=== PATIENT | male | born 2000 | race African-American/Black ===

== ENCOUNTER 2025-05-28 06:20 | Day surgery (SDC) | payer OTHER ==
[2025-05-28 07:41] LABS: #Basophils Less than 0.03 10x3/uL (0.0-0.2); #Eosinophils 0.24 10x3/uL (0.0-0.7); #Monocytes 0.62 10x3/uL (0.11-0.59); #Neutrophils 2.24 10x3/uL (1.40-6.50); %Basophils 0.2 % (0.0-1.0); %Eosinophils 4.2 % (0.0-10.0); %Lymphocytes 45.4 % (21.0-51.0); %Monocytes 10.9 % (0.0-10.0); %Neutrophils 39.1 % (42.0-75.0); Hematocrit 42.9 % (42.0-52.0); Hemoglobin 14.4 g/dL (14.0-18.0); Mean Corpuscular Hemoglobin 29.0 pg (27.0-31.0); Mean Corpuscular Volume 86.3 fL (78.0-98.0); Platelet Count 254 10x3/uL (130-400); Red Blood Cell (RBC) Count 4.97 mill/uL (4.70-6.10); White Blood Cell (WBC) Count 5.71 10x3/uL (4.8-10.8)
[2025-05-28] MEDS ORDERED: GLYCOPYRROLATE/PF 0.2 MG/ML VIAL ONE (07:51)
[2025-05-28 08:02] LABS: ALT (SGPT) 11 U/L (Less than 45); AST (SGOT) 22 U/L (11-34); Albumin 4.7 g/dL (3.1-4.5); Alkaline Phosphatase 61 U/L (40-110); Anion Gap 12 mmol/L (10-20); BUN (Urea Nitrogen) 17 mg/dL (8.9-20.6); Bacteria/HPF None Seen HPF (None Seen); Bilirubin, Total 0.7 mg/dL (0.3-1.2); CAUTI Indications for Culture Alt mental st,lethar; Calc. Creatinine Clearance 0 mL/min (70-130); Calcium 9.9 mg/dL (7.8-10.44); Carbon Dioxide 27 mmol/L (22-29); Chloride 108 mmol/L (98-107); Globulin 2.7 g/dL (2.4-3.5); Glucose 85 mg/dL (70-105); Glucose, Urine (Dipstick) Normal (Negative); Leukocyte Negative Leu/uL (Negative); Potassium 3.7 mmol/L (3.5-5.1); Protein, Urine (Dipstick) 10 mg/dL (Neg-Trace); RBC/HPF 0-3 HPF (0-3); Sodium 143 mmol/L (136-145); Specific Gravity, Urine 1.032 (1.002-1.036); WBC/HPF 0-3 HPF (0-3)
[2025-05-28 08:03] LABS: Acetaminophen Less than 10 mcg/mL (Less than 10); Salicylate Less than 8.0 mg/dL (Less than 8.0)
[2025-05-28 08:05] LABS: Urine Culture Reflex No No
[2025-05-28 08:10] LABS: Cocaine Metabolite Screen Negative (Negative); THC/Cannabinoid Screen Negative (Negative); Tricyclic Screen Negative (Negative)
[2025-05-28] MEDS ORDERED: PROPOFOL 200 MG/20 ML VIAL ONE (08:19)
[2025-05-28] MEDS ORDERED: PHENYLEPHRINE-NS 100 MCG/ML 10 ML SYRINGE ONE (08:19)
== END 2025-05-28 10:50 ==
LOC: ERS 06:20 → EEVIPCON 06:20 → SDC 07:12
PROVIDERS: ATTEND Internal Medicine Gastroenterology
PROC: 0DC68ZZ Extirpation of Matter from Stomach, Via Natural or Artificial Opening Endoscopic (ICD-10-PCS; principal; 2025-05-28)
DX: T18.2XXA Foreign body in stomach, initial encounter (principal); Z91.010 Allergy to peanuts; Z87.891 Personal history of nicotine dependence; W44.8XXA Other foreign body entering into or through a natural orifice, initial encounter; T18.3XXA Foreign body in small intestine, initial encounter; R10.9 Unspecified abdominal pain
CPT/HCPCS: 71045; 74019; 74177; 80053; 80306; 80307; 81001; 85025; 86850; 86900; 86901; 93005; J2704; J3490; Q9967

== ENCOUNTER 2025-05-28 22:22 | Emergency (ER) | payer OTHER ==
[~2025-05-28 22:22] MED LIST: Iopamidol-370 76% 500 ML MDV (1 ML CHARGE) ONE
[2025-05-28 22:50] LABS: #Basophils 0.03 10x3/uL (0.0-0.2); #Eosinophils 0.22 10x3/uL (0.0-0.7); #Monocytes 0.55 10x3/uL (0.11-0.59); #Neutrophils 1.93 10x3/uL (1.40-6.50); %Basophils 0.7 % (0.0-1.0); %Eosinophils 5.1 % (0.0-10.0); %Lymphocytes 36.2 % (21.0-51.0); %Monocytes 12.9 % (0.0-10.0); %Neutrophils 45.1 % (42.0-75.0); Hematocrit 41.3 % (42.0-52.0); Hemoglobin 13.6 g/dL (14.0-18.0); Mean Corpuscular Hemoglobin 28.2 pg (27.0-31.0); Mean Corpuscular Volume 85.5 fL (78.0-98.0); Platelet Count 236 10x3/uL (130-400); Red Blood Cell (RBC) Count 4.83 mill/uL (4.70-6.10); White Blood Cell (WBC) Count 4.28 10x3/uL (4.8-10.8)
[2025-05-28 23:01] LABS: ALT (SGPT) 10 U/L (Less than 45); AST (SGOT) 22 U/L (11-34); Albumin 4.5 g/dL (3.1-4.5); Alkaline Phosphatase 62 U/L (40-110); Anion Gap 13 mmol/L (10-20); BUN (Urea Nitrogen) 18 mg/dL (8.9-20.6); Bilirubin, Total 0.5 mg/dL (0.3-1.2); Calc. Creatinine Clearance 0 mL/min (70-130); Calcium 9.5 mg/dL (7.8-10.44); Carbon Dioxide 28 mmol/L (22-29); Chloride 109 mmol/L (98-107); Globulin 2.4 g/dL (2.4-3.5); Glucose 89 mg/dL (70-105); Potassium 4.4 mmol/L (3.5-5.1); Sodium 146 mmol/L (136-145)
== END 2025-05-29 01:00 ==
LOC: ERS 22:22 → EEVIPCON 22:22 → ERS 05-29 01:00
DX: T18.3XXA Foreign body in small intestine, initial encounter (principal); Z87.891 Personal history of nicotine dependence; W44.8XXA Other foreign body entering into or through a natural orifice, initial encounter
CPT/HCPCS: 74177; 93005; Q9967

== ENCOUNTER 2025-05-30 04:39 | Emergency (ER) | payer OTHER | END 2025-05-30 06:21 | LOC: EEVIPCON 04:39 → ERS 04:39 | DX: T18.9XXA Foreign body of alimentary tract, part unspecified, initial encounter (principal); R45.851 Suicidal ideations; Z87.891 Personal history of nicotine dependence | CPT/HCPCS: 71045; 74018 ==